=== PATIENT | male | born 1965 | race Caucasian/White ===

== ENCOUNTER 2017-03-13 19:21 | Emergency (ER) | payer SELFPAY ==
[~2017-03-13 19:21] MED LIST: ACID CONTROL20 MG PO; ASPIRIN PO; CERTAGEN PO; FLAGYL PO; HUMALOG100 U/ML; HUMALOG100 U/ML SUBQ; HYDROCODONE-APA1 T30 PO; KEFLEX500 MG PO; LANTUS100 U/M1 INJ; LANTUS100 U/ML INJ; LANTUS100 U/ML SUBQ; PHENERGAN PO; PORTLAND PHARMACY
== END 2017-03-13 20:25 | disposition home or self-care (01) ==
LOC: CED 19:21
DX: E10.649 Type 1 diabetes mellitus with hypoglycemia without coma (principal); I10 Essential (primary) hypertension; F17.210 Nicotine dependence, cigarettes, uncomplicated; Z88.5 Allergy status to narcotic agent; Z79.4 Long term (current) use of insulin
CPT/HCPCS: 82947; 99283